=== PATIENT | male | born 2000 | race Caucasian/White ===

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

== ENCOUNTER 2022-06-07 16:33 | Emergency (ER) | payer BC ==
[~2022-06-07] VITALS: Ht 172.7 cm; Wt 75.3 kg
[~2022-06-07 16:33] MED LIST: DOXY100T2 PO
[2022-06-07 16:51] VITALS: BP 133/75
--- NOTE | 2022-06-07 18:13 | NUR ---
Patient discharged to home in stable condition. Written and verbal after care instructions given. Patient verbalizes understanding of instruction.
== END 2022-06-07 18:14 | disposition home or self-care (01) ==
LOC: ER 16:35
DX: M54.50 Low back pain, unspecified (principal); V49.69XA Unspecified car occupant injured in collision with other motor vehicles in traffic accident, initial encounter; Y93.89 Activity, other specified; Y92.413 State road as the place of occurrence of the external cause; Y99.8 Other external cause status
CPT/HCPCS: 72100-TC

== ENCOUNTER 2023-04-03 09:13 | Emergency (ER) | payer BC, MEDICAID ==
[~2023-04-03] VITALS: Ht 172.7 cm; Wt 81.6 kg
[2023-04-03 09:18] VITALS: BP 126/83
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
[2023-04-03] MEDS ORDERED: METH4TAB17 PO (10:05)
[2023-04-03] MEDS ORDERED: IBUP-1955 PO (10:05)
[2023-04-03] MEDS ORDERED: CYCL5TAB PO (10:05)
== END 2023-04-03 10:35 | disposition home or self-care (01) ==
LOC: ER 09:15
DX: M54.42 Lumbago with sciatica, left side (principal)